=== PATIENT | male | born 1940 | race Caucasian/White ===

== ENCOUNTER → 2017-11-05 | Outpatient (CLI) | payer OTHER ==
[~2017-11-05] MED LIST: GADOBUTROL 10 ML VIAL IVP ONE
== END ==
LOC: FIMAGING 12:09
DX: N40.0 Benign prostatic hyperplasia without lower urinary tract symptoms (principal); Z80.42 Family history of malignant neoplasm of prostate
CPT/HCPCS: 72197; 76377; A9585